=== PATIENT | female | born 1970 | race African-American/Black ===

== ENCOUNTER 2016-11-01 07:41 | Day surgery (SDC) | payer OTHER ==
[~2016-11-01 07:41] MED LIST: KETOROLAC TROMETHAMINE 0.45% 4 DROP/0.4 ML DROPERETTE OD PRN
[2016-11-01] MEDS: TETRACAINE HCL 0.5% OPH SOLN 2 ML OD PRN ×4 (08:15→08:55)
[2016-11-01] MEDS: CYCLOPENTOLATE 0.2%/PHENYLEPHRINE 1% OPH SOLN 2 ML OD PRN ×3 (08:16→08:40)
[2016-11-01] MEDS: BESIFLOXACIN HCL 0.6% OPH SUSP 5 ML BOTTLE OD PRN ×4 (08:16→09:27)
[2016-11-01] MEDS: TROPICAMIDE 1% OPH SOLN 3 ML OD PRN ×3 (08:16→08:40)
[2016-11-01] MEDS ORDERED: MIDAZOLAM 2 MG/2 ML INJ ONE (08:30)
[2016-11-01] MEDS: CHONDR SU A NA/HYALUR INTRAOC KIT (SURGICARE) ONE ×2 (09:07)
[2016-11-01] MEDS: EPINEPHRINE INJ/PF 1 MG/1 ML AMPULE ONE ×2 (09:07)
[2016-11-01] MEDS: LIDOCAINE 1% INJ-PF (10 MG/ML) 30 ML SDV ONE ×2 (09:08)
--- NOTE | 2016-11-01 19:48 | [facility] OPERATIVE REPORT E ---
[facility] Operative Report NAME: JERRY CAMPBELL AGE: 46Y DATE OF SURGERY: 11/01/2016 ROOM: PREOPERATIVE DIAGNOSIS: Cataract, right eye. POSTOPERATIVE DIAGNOSIS: Cataract, right eye. OPERATION: Cataract extraction with use of a Toric IOL lens implant of the right eye. SURGEON: YESENIA MARTIN M.D. ANESTHESIA: Topical. PROCEDURE: After obtaining appropriate consent, the patient's right eye was prepped and draped in sterile fashion as well as the surgeon in a sterile manner and cataract surgery was started. First a paracentesis blade was used to make a small side-port incision. Viscoelastic was used to inflate the anterior chamber. Next a 2.4 mm incision was made with the paracentesis blade. A continuous capsulorrhexis incision was made using a cystotome and Utrata forceps. Following this hydrodissection was carried out to make the lens fully loose and mobile and it was rotated 90 degrees. Following this, a ehkgen-rxo-mckxizl technique was used to phacoemulsify the lens with a CDE of 21.91. The remaining cortex was removed with irrigation/aspiration. Provisc was instilled into the capsular bag to inflate the bag. A SN6AT5, 17.5 diopter lens rotated to [address] was [address]. The remaining viscoelastic material was removed with irrigation/aspiration. Following this, a 10-0 nylon suture was used to close the incision and it was found to be watertight. Vigamox was instilled in the eye and a protective shield was placed over the eye. The patient returned to the postoperative recovery in stable condition. ADDENDUM: Prior to the patient lying on the operating room table, the 0 and 180 degree axis was marked with a clear corneal marker. Prior to insertion of the lens, the 168-degree axis was marked with a clear corneal marker. The lens was rotated into proper position. DICTATING PHYSICIAN: YESENIA MARTIN M.D. [id number] PHY#: [id number] ID: [id number] JOB#: [id number] ACCT: [id number] cc:YESENIA MARTIN M.D. >
--- NOTE | 2016-11-01 19:48 | DISCHARGE SUMMARY E ---
Discharge Summary NAME: JERRY CAMPBELL : 1970 AGE: 46Y ADMITTED: 11/01/2016 DISCHARGED: HISTORY AND HOSPITAL COURSE: This is a 46-year-old female who underwent cataract extraction of the right eye. Diagnosis: Cataract, right eye; insertion of a Toric IOL. She underwent surgery because she was having difficulty with nighttime driving and trouble seeing road signs. She should be on a regular diet. No bending at her waist. No heavy lifting. She should use her Besivance, Ilevro, and Durezol at 3:00 p.m. and 8:00 p.m. and sleep with a rigid shield, and I will see her for 1-day postoperative visit tomorrow. DICTATING PHYSICIAN: YESENIA MARTIN M.D. [id number] PHY#: [id number] ID: [id number] JOB#: [id number] ACCT: [id number] cc:YESENIA MARTIN M.D. >
== END 2016-11-01 10:20 | disposition home or self-care (01) ==
LOC: SC 07:41
PROVIDERS: ATTEND Internal Medicine
PROC: 08RJ3JZ Replacement of Right Lens with Synthetic Substitute, Percutaneous Approach (ICD-10-PCS; principal; 2016-11-01 09:00)
DX: H25.13 Age-related nuclear cataract, bilateral (principal)
CPT/HCPCS: 66984; V2632; J2250; J3490 ×2; J0171; 142